=== PATIENT | male | born 1960 | race Caucasian/White ===

== ENCOUNTER 2018-04-04 10:34 | Emergency (ER) | payer OTHER ==
[~2018-04-04] VITALS: Ht 180.3 cm; Wt 88.9 kg
[2018-04-04] MEDS ORDERED: LOSARTAN-HCTZ1 EAC2 PO (11:44)
[2018-04-04] MEDS ORDERED: CATAPRES0.1 MG PO (11:44)
[2018-04-04] MEDS ORDERED: AMLODIPINE-OLM1 EAC1 PO (11:45)
== END 2018-04-04 16:05 | disposition home or self-care (01) ==
LOC: ER 10:34
DX: M54.2 Cervicalgia (principal); I10 Essential (primary) hypertension; M25.512 Pain in left shoulder

== ENCOUNTER 2021-08-17 09:25 | Emergency (ER) | payer OTHER ==
[~2021-08-17] VITALS: Ht 180.3 cm; Wt 95.3 kg
[~2021-08-17 09:25] MED LIST: AMLODIPINE-OLM1 EAC1 PO; CATAPRES0.1 MG PO; LOSARTAN-HCTZ1 EAC2 PO
== END 2021-08-17 14:37 | disposition home or self-care (01) ==
LOC: ER 09:25
DX: I10 Essential (primary) hypertension (principal); R07.0 Pain in throat; Z20.822 Contact with and (suspected) exposure to COVID-19

== ENCOUNTER 2022-02-23 09:37 | Inpatient (IN) | payer OTHER ==
[~2022-02-23] VITALS: Ht 180.3 cm; Wt 106.6 kg
[2022-02-23] MEDS ORDERED: BENZONATATE200 M1 PO (13:00)
== END 2022-02-26 18:09 | disposition home or self-care (01) | DRG 305 ==
LOC: ER 09:37 → SURG 20:19 → MEDI 20:19 → SURG 02-24 00:31 → MEDI 02-24 10:29
PROVIDERS: ADMIT Internal Medicine; ATTEND Internal Medicine
PROC: 4A12X4Z Monitoring of Cardiac Electrical Activity, External Approach (ICD-10-PCS; principal; 2022-02-24)
DX: I16.0 Hypertensive urgency (principal); R22.1 Localized swelling, mass and lump, neck; Z20.822 Contact with and (suspected) exposure to COVID-19; I10 Essential (primary) hypertension

== ENCOUNTER 2022-11-12 13:17 | Outpatient (CLI) | payer OTHER ==
[~2022-11-12 13:17] MED LIST changes: +BENZONATATE200 M1 PO
== END 2022-11-12 13:18 | disposition home or self-care (01) ==
LOC: EDBD 13:17 → NUCLEAR 13:17
PROVIDERS: ATTEND Internal Medicine Sports Medicine
DX: C73 Malignant neoplasm of thyroid gland (principal); E89.0 Postprocedural hypothyroidism
CPT/HCPCS: 79005; A9517

== ENCOUNTER → 2022-11-16 | Outpatient (CLI) | payer OTHER | END | disposition home or self-care (01) | LOC: NUCLEAR 11:20 → EDBD 13:00 → NUCLEAR 13:00 | PROVIDERS: ATTEND Internal Medicine Sports Medicine | DX: C73 Malignant neoplasm of thyroid gland (principal); E89.0 Postprocedural hypothyroidism | CPT/HCPCS: 78015; A9531 ==